=== PATIENT | male | born 1940 | race Caucasian/White ===

== ENCOUNTER → 2018-12-17 | Outpatient (CLI) | payer MEDICARE ==
[~2018-12-17] MED LIST: ALBU8.5H12 IH; AMOX-559 PO; COLD; LANI SUBQ; METF-450 PO
--- NOTE | 2018-12-17 11:41 | RADIOLOGY IMAGING REPORT ---
[place] [facility] [place] NAME: Jay Adams : 1940 MR: [id number] V: [id number] EXAM DATE: ORDERING PHYSICIAN: BLAIR ENNIS TECHNOLOGIST: Location: [facility] [place] Patient: Jay Adams : 1940 Visit/Account:[id number] Date of Sevice: 12/17/2018 Exam type: CHEST PA LAT History: History of pneumonia and bronchitis. "Is unable to get an of oxygen unless they taking appr opriate breath" Comparison: December 30, 2015. Findings: Patient has made a limited inspiratory effort producing crowding the bronchovascular markings bilater ally. There is elevation of the right hemidiaphragm actually appears slightly more prominent when co mpared to the prior study. Chronic peribronchial thickening and chronic linear stranding in the righ t lung base remains relatively unchanged. There is no evidence of overt pulmonary edema. The cardia c silhouette is mildly enlarged but unchanged. 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 Clinical correlation needed Chronic peribronchial thickening and chronic linear stranding the right lung base appear unchanged Crowding the bronchovascular markings from limited inspiratory effort Mild chronic cardiomegaly unchanged Report Dictated By: Janessa Sharif MD at 12/17/2018 11:29 AM Report E-Signed By: Janessa Sharif MD at 12/17/2018 11:31 AM WSN:[email or web address]
== END ==
LOC: RAD 10:44
PROVIDERS: ATTEND Family Medicine
DX: J98.6 Disorders of diaphragm (principal); I51.7 Cardiomegaly
CPT/HCPCS: 71046